=== PATIENT | male | born 1960 | race Caucasian/White ===

== ENCOUNTER → 2016-06-29 | Outpatient (CLI) | payer OTHER ==
[~2016-06-29] MED LIST: CYCL10TA6 PO; GLC/500 PO; LOSA100T2 PO; LOSA1TAB PO; ONDA4TAB7 SL
[2016-06-29 12:30] LABS: URINE APPEARANCE CLEAR (CLEAR); URINE BILIRUBIN NEG (NEG); URINE COLOR YELLOW; URINE EPITHELIAL CELL AUTO 0-5 /lpf (0-5); URINE NITRITE NEG (NEG); URINE PH 5.5 (4.5-7.5); URINE SPECIFIC GRAVITY 1.008 (1.000-1.030); UROBILINOGEN NEG (NEG); ZZUR CULT IF INDIC CLEAN CATCH NO
[2016-06-29 12:41] LABS: ESTIMATED AVERAGE GLUCOSE 143 mg/dl; HA1C FLAG Normal (Normal)
[2016-06-29 12:43] LABS: MANUAL MICROSCOPIC REQUIRED? NO; REVIEW REQ? NO
[2016-06-29 12:46] LABS: ALT/SGPT 36 U/L (12-78); AST/SGOT 19 U/L (15-37); BLOOD UREA NITROGEN 16 mg/dl (7-18); CALCIUM 8.8 mg/dl (8.5-10.1); CARBON DIOXIDE 28 mmol/L (21-32); CHLORIDE 107 mmol/L (98-107); GLUCOSE 99 mg/dl (70-99); POTASSIUM 3.8 mmol/L (3.5-5.1); SODIUM 142 mmol/L (136-145)
[2016-06-29 12:56] LABS: ALB/GLOB RATIO 1.5 (0.9-2); ALKALINE PHOSPHATASE 70 U/L (45-117); CHOLESTEROL 157 mg/dl (0-200); HDL CHOLESTEROL 39 mg/dl; LDL CHOLESTEROL CALCULATED 94 mg/dl; TRIGLYCERIDES 120 mg/dl (0-150); VERY LOW DENSITY LIPOPROT CALC 24 mg/dl
== END | disposition home or self-care (01) ==
LOC: C.LABBFT 09:08
PROVIDERS: ATTEND Internal Medicine
DX: E11.9 Type 2 diabetes mellitus without complications (principal); R52 Pain, unspecified; N52.9 Male erectile dysfunction, unspecified; Z13.6 Encounter for screening for cardiovascular disorders

== ENCOUNTER 2016-10-25 21:40 | Emergency (ER) | payer OTHER ==
[~2016-10-25] VITALS: Ht 177.8 cm; Wt 98.0 kg
[~2016-10-25 21:40] MED LIST changes: -CYCL10TA6 PO; -GLC/500 PO; -LOSA100T2 PO
[2016-10-25 22:02] VITALS: TEMP 36.7; Ht 177.8 cm; Wt 98.0 kg
[2016-10-25] MEDS ORDERED: KETOROLAC TROMETHAMINE 60 MG/2 ML VIAL IM STA (22:31)
[2016-10-25] MEDS ORDERED: DIAZEPAM 5MG TAB PO STA (22:31)
[2016-10-25 22:53] LABS: URINE APPEARANCE CLEAR (CLEAR); URINE BILIRUBIN NEG (NEG); URINE COLOR YELLOW; URINE NITRITE NEG (NEG); URINE SPECIFIC GRAVITY 1.021 (1.000-1.030); UROBILINOGEN NEG (NEG); ZZUR CULT IF INDIC CLEAN CATCH NO
[2016-10-25 22:57] LABS: MANUAL MICROSCOPIC REQUIRED? NO; REVIEW REQ? NO
[2016-10-25] MEDS ORDERED: GLC/500 PO ×2 (23:11→23:14)
[2016-10-25] MEDS ORDERED: LOSA100T2 PO (23:13)
[2016-10-25] MEDS ORDERED: CYCL10TA6 PO (23:26)
--- NOTE | 2016-10-25 23:28 | EMERGENCY ROOM VISIT NOTE ---
History First contact with patient: 22:22 Chief Complaint: BACK PAIN Stated Complaint: SEVERE BACK SPASMS History of Present Illness The patient is a 56 year old male who presents to the Emergency Room with complaints of back spasms which began this evening. The patient states that he slipped and fell onto his buttocks earlier today. He states that he had no significant pain for a few hours, until he began to ice the area. He reports that then, his lower back began to spasm. He states that the spasms did not occur in the area that he injured during the fall, but up higher. He rates his current discomfort a 10/10 and the pain is worse with any movement of the back. He denies any radiation of the pain into the legs. He denies any numbness or weakness. Review of Systems A complete 10 point review of systems was reviewed with the patient with pertinent positives and negatives as per history of present illness. All else were negative. Social History Smoking Status: Never Smoker Alcohol Use: none Drug Use: none Marital Status: Housing Status: lives with family Occupation Status: employed Current/Historical Medications Scheduled Losartan Potassium & Hydrochlo (Hyzaar), 1 TAB PO DAILY Metformin Hcl (Glucophage), 500 MG PO QPM Allergies Coded Allergies: Adhesives (Verified Allergy, Unknown, COLON/SWELLING, 10/25/16) Latex1 -Allergic Contact Dermititis (Unverified Allergy, Unknown, RASH, ) Metoprolol (Unverified Allergy, Unknown, UNKNOWN REACTION, 10/25/16) Lisinopril (Verified Adverse Reaction, Unknown, COUGHING, 10/25/16) Physical Exam Vital Signs Date Time Temp Pulse Resp B/P (MAP) Pulse Ox O2 Delivery O2 Flow Rate FiO2 10/25/16 23:41 76 16 117/69 97 Room Air 10/25/16 22:02 36.7 66 18 130/84 98 Room Air Physical Exam VITALS: Vitals are noted on the nurse's note and reviewed by myself. No abnormalities noted. GENERAL: This is a 56-year-old male, in no acute distress, nondiaphoretic, well- developed well-nourished. SKIN: The skin was without rashes. HEART: Regular rate and rhythm without murmurs gallops or rubs. LUNGS: Clear to auscultation bilaterally without wheezes, rales or rhonchi. ABDOMEN: Soft, nontender. MUSCULOSKELETAL: No muscle atrophy, erythema, or edema noted of the back. There is no tenderness over the lumbar spinous processes. There is tenderness over the left lumbar paraspinous muscles. There is no tenderness over the thoracic spine or paraspinous muscles. There are left sided muscle spasms present. The patient is slow to move around with maximum tenderness with flexion. Negative straight leg raise test. NEURO: Patient was alert and oriented to person place and time. Normal sensation to light and sharp touch. Deep tendon reflexes 2+ in the lower extremities. Dorsalis pedis pulse 2+ bilaterally. Heel and toe walking is normal. Medical Decision & Procedures Laboratory Results Test 10/25/16 22:40 Urine Color YELLOW Urine Appearance CLEAR (CLEAR) Urine pH 7.0 (4.5-7.5) Urine Specific [place] 1.021 (1.000-1.030) Urine Protein NEG (NEG) Urine Glucose (UA) NEG (NEG) Urine Ketones NEG (NEG) Urine Occult Blood NEG (NEG) Urine Nitrite NEG (NEG) Urine Bilirubin NEG (NEG) Urine Urobilinogen NEG (NEG) Urine Leukocyte Esterase NEG (NEG) Medications Administered Medications (Trade) Dose Ordered Sig/Dominga Route Start Time Stop Time Status Last Admin Dose Admin Diazepam (Valium Tab) 10 mg NOW STAT PO 10/25/16 22:31 10/25/16 22:32 DC 10/25/16 22:37 10 MG Ketorolac Tromethamine (Toradol Inj) 60 mg NOW STAT IM 10/25/16 22:31 10/25/16 22:32 DC 10/25/16 22:38 60 MG Cyclobenzaprine HCl (FLEXERIL 10MG Home Pack) 1 homepack UD ONCE PO 10/25/16 23:30 10/25/16 23:31 DC 10/25/16 23:39 1 HOMEPACK ED Course The patient was evaluated as above. Patient was medicated with 10 mg Valium orally and 60 mg Toradol IM. Patient was reevaluated and stated that he felt much better. Discharge instructions were reviewed with the patient. The patient verbalized understanding of my assessment and treatment plan and was discharged home in good condition. Medical Decision Differential diagnosis includes cauda equina syndrome, cord compression, disc herniation, muscle spasm, lumbar strain, epidural abscess, malignancy, transverse myelitis, urinary tract infection, colitis, diverticulitis, kidney stone, among others. The patient is a 56-year-old male who presents today complaining of low back spasms. The patient has symptoms most consistent with muscular spasms. Urinalysis was not suggestive of a kidney stone. He was treated with Valium and Toradol with good relief of symptoms. He will be placed on Flexeril and was instructed to follow up with his PCP for further evaluation. He will return here for worsening symptoms. Medication reconciliation: I attest that I have personally reviewed the patient 's current medication list. Blood pressure screening: Patient was found to have normal blood pressure on screening and does not require follow-up. Impression Primary Impression: Lumbar paraspinal muscle spasm Departure Information Dispostion Home / Self-Care Condition GOOD Referrals Latrell Paul M.D. (PCP) Patient Instructions My [facility] Additional Instructions You have been treated in the Emergency Department for Back Pain. You have been prescribed Flexeril (cyclobenzaprine) 1-2 tabs orally, three times per day. Do NOT exceed 30 mg (6 tabs) per day. Take your first dose at bedtime as it can make you drowsy. Always take all medications as prescribed. For pain control, you can use the following [id number] medicines (if >12 yo): - Regular strength (325mg/tab) Tylenol (acetaminophen) 2 tabs every 4-6 hours as needed. Do not exceed 12 tablets in a 24 hour period. Avoid taking more than 4 grams (4000 mg) of Tylenol per day. This includes any other sources of acetaminophen you may take on a regular basis. - Regular strength (200 mg/tab) Advil (ibuprofen) 1-2 tabs every 4-6 hours as needed. Do not exceed a dose of 3200 mg per day. A heating pad can be used over the area for continued soothing relief. You should schedule a follow-up appointment in 2-3 days with your Primary Care Provider for further evaluation and treatment of your back pain. Return to the Emergency Department if your current symptoms worsen despite treatment course outlined above, or if you develop any of the following symptoms : intractable pain despite aforementioned treatment course, loss of control of your bowel or bladder, numbness or tingling in your groin, or development of a fever.
[2016-10-25] MEDS ORDERED: FLEXERIL HOME PACK 10 MG VIAL PO ONE (23:30)
[2016-10-25 23:41] VITALS: BP 117/69; PULSE 76; O2SAT 97
== END 2016-10-25 23:43 | disposition home or self-care (01) ==
LOC: C.EDB 21:41 → C.EDC 23:43
DX: M62.830 Muscle spasm of back (principal); W01.0XXA Fall on same level from slipping, tripping and stumbling without subsequent striking against object, initial encounter; Z79.899 Other long term (current) drug therapy

== ENCOUNTER → 2016-12-21 | Outpatient (CLI) | payer OTHER ==
[~2016-12-21] MED LIST changes: +GLC/500 PO; +LOSA100T2 PO; -LOSA1TAB PO; -ONDA4TAB7 SL
== END | disposition home or self-care (01) ==
LOC: C.LABBFT 11:05
PROVIDERS: ATTEND Physician Assistant Medical
DX: M25.519 Pain in unspecified shoulder (principal)

== ENCOUNTER → 2017-07-24 | Outpatient (CLI) | payer OTHER | END | disposition home or self-care (01) | LOC: C.LABBFT 08:40 | PROVIDERS: ATTEND Internal Medicine | DX: R39.9 Unspecified symptoms and signs involving the genitourinary system (principal) ==

== ENCOUNTER → 2017-07-31 | Outpatient (CLI) | payer OTHER | END | disposition home or self-care (01) | LOC: C.LABBFT 14:36 | PROVIDERS: ATTEND Internal Medicine | DX: R39.9 Unspecified symptoms and signs involving the genitourinary system (principal) ==

== ENCOUNTER 2023-01-07 01:28 | Observation (INO) ==
[2023-01-07] MEDS ORDERED: NITROGLYCERIN SL 0.4 MG/TAB TAB SL STA (01:46)
[2023-01-07] MEDS ORDERED: fentaNYL citrate PF 100 MCG/2 ML VIAL IV STA (01:46)
[2023-01-07] MEDS ORDERED: ASPIRIN 81 MG CHEW PO STA (01:46)
--- NOTE | 2023-01-07 01:50 | Emergency Department Note ---
Impression & Plan Chest pain radiating to jaw, Hypertension ED Provider Note Name: TED JIMENEZ Age: 62 Sex: M Arrives Via: Walk-In Informant: Patient ED Provider: Michele Gerber MD Chief Complaint: Chest pain Impression: As per impressions above Medical Decision Makin-year-old gentleman with a history of diabetes, hypertension, dyslipidemia arrives for evaluation of substernal chest pain. Radiates to left shoulder and left neck. Resolved with some IV pain medications and nitro. Blood pressure was elevated on arrival is come down nicely. Chest pain is completely resolved. He is given aspirin 324 mg p.o. Chest x-ray is unremarkable without a widened mediastinum. D-dimer is normal I think PE and dissection are unlikely. Initial EKG okay and second is good as well. No evidence of STEMI at this time. Initial troponin within normal range as are other labs. That said patient has moderate heart score and will need hospitalization for further work-up. Hospitalist in to see him and agrees. Prior Medical Record and Triage/Nursing Notes reviewed by Me External chart reviewed by me including previous outpatient records Differentials:Cardiac ischemia, aortic dissection, pulmonary embolism, pneumothorax, pneumonia, pericarditis, myocarditis, esophageal rupture, GERD, cholecystitis, pancreatitis, musculoskeletal, as well as other pathologies. Vital Signs: reviewed and remarkable for hypertension arrival Interventions: Dilaudid IV, sublingual nitroglycerin, aspirin 324 Labs:Reviewed and remarkable for no significant abnormalities Imagin view chest x-ray as per my interpretation reveals no pneumonia, eff usion, pneumothorax, widened mediastinum EKG:As per my interpretation. Indication chest pain. Sinus bradycardia 54 bpm QTc of 386. There is no ectopy nor ischemia. When compared to EKG of June 22, 2020 no significant change other than rate has decreased. Cardiac/Tele Monitoring: Cardiac Monitoring: An Order was placed for continuous cardiac monitoring. The monitor shows a rate of 60 with a normal sinus rhythm. Consults:Dr Vickie SURESH Hospitalist Plan: Disposition:Hospitalization. Condition: Good History of Present Illness:62-year-old gentleman arrives for evaluation of chest pain. Patient states he developed substernal chest pain about 2 hours ago. Initially the pain actually was in the left shoulder but is now substernal. It radiates to the left and right chest as well as the left neck. Is a bit worse with deep inspiration. Better with rest. No medications prior to arrival. Denies any inciting event. States for dinner he had some knots but nothing else unusual. Does not have any significant reflux history. Denies any falls, trauma, injuries. Denies any syncope, difficulty breathing, palpitations, nausea, vomiting, abdominal pain, back pain, urinary/bowel symptoms, leg swelling, calf pain or other concerning signs or symptoms. Denies a history of cardiac disease. States he had a stress test a few years ago. Past History: Diabetes, hypertension, dyslipidemia, hypothyroidism Home Medications:See Below Allergies:See Below Vitals:Blood Pressure: 163/98, Pulse 60, RR 20, T 36.8C, O2 100% on RA Physical Exam: GENERAL: Patient is uncomfortable appearing and in moderate distress. EYES: No scleral icterus, unremarkable pupils. ENT: Mucous membranes moist, no nasal congestion. NECK: No masses appreciated, nomeningismus, trachea is midline. RESPIRATORY: No dyspnea. Clear to auscultation and equal bilaterally. No wheeze, no rhonchi. CARDIOVASCULAR: Regular rate and rhythm.No murmurs, rubs, gallops appreciated. GASTROINTESTINAL: Abdomen soft, non-tender, no peritonitis.Bowel sounds positive.No masses appreciated. BACK: No midline tenderness, no CVA tenderness EXTREMITIES: Normal motion all extremities, no cyanosis, no edema. NEUROLOGIC: Alert and oriented, no acute motor or sensory deficits, no focal weakness, cranial nerves grossly intact. SKIN: No rash, no jaundice, no diaphoresis. PSYCH: Appropriate GCS: 15 ED Course: Times/Reassessments: Patient is vastly improved after meds. Blood pressures come down nicely pain has not returned. He is comfortable with plan for additional work-up as hospitalized patient Michele Gerber MD Past Med/Surg History Medical History (Updated 01/07/23 @ 05:32 by Michele Gerber MD) Family history of coronary artery disease Hyperlipidemia Hypertension Hypothyroidism Type 2 diabetes mellitus Vitamin D deficiency Family History Father Heart disease Denies family history of Prostate cancer Breast cancer Colorectal cancer Social History (Updated 08/29/22 @ 13:05 by Freda Cisneros LPN) Smoking Status: Never smoker Second Hand Exposure: No; Do You Dip or Chew Tobacco: No; Hx Alcohol Use: No Hx Substance Use: No current occupational status: employed current occupation: [employer] Feels Safe at Home: Yes Diet: regular caffeine: Yes Physical Activity Frequency: Daily Seatbelt Use: other Sunscreen Use: Yes (Sometimes) Assistive Devices: Glasses Allergies Allergies Allergy/AdvReac Type Severity Reaction Status Date / Time adhesive Allergy Unknown COLON/SWELL Verified 08/29/22 12:57 ING latex Allergy Unknown RASH Verified 08/29/22 12:57 metoprolol Allergy Unknown Rash Verified 08/29/22 12:57 atorvastatin Allergy Verified 08/29/22 12:57 lisinopril AdvReac Unknown COUGHING Verified 08/29/22 12:57 Home Meds Home Medications Medication Instructions Recorded Confirmed cholecalciferol (vitamin D3) 25 1,000 units PO QAM 06/22/20 01/07/23 mcg (1,000 unit) capsule levothyroxine 50 mcg tablet 50 mcg PO DAILY 08/29/22 01/07/23 magnesium oxide 400 mg PO DAILY 08/29/22 01/07/23 Previous Rx's Medication Instructions Recorded losartan 50 mg tablet 50 mg PO DAILY #90 tabs 01/30/22 empagliflozin 10 mg tablet 10 mg PO DAILY #90 tabs 04/17/22 (Jardiance) metformin 500 mg tablet 500 mg PO BID #180 tabs 11/20/22 Results & Data (ED) Vital Signs Vital Signs - 24 hr 01/07/23 01:31 01/07/23 02:10 01/07/23 02:10 Temperature 36.8 C Temperature Source Temporal Artery Scan Pulse Rate 60 Pulse Rate [Apical] 52 L Pulse Rate from SpO2 Sensor Pulse Rhythm Regular Pulse Rhythm [Apical] Regular Pulse Strength Normal Pulse Strength [Apical] Normal Respiratory Rate 20 21 Respiratory Effort / Characteristics Non-Labored Spontaneous Non-Labored Respiratory Depth Normal Normal Respiratory Pattern Regular Blood Pressure 163/98 H Blood Pressure Mean 119 Blood Pressure Position Sitting Pulse Oximetry 100 95 91 Oxygen Delivery Method Room Air Room Air Room Air Sepsis Recent Fever Within 48 Hours No Sepsis New/Unexplained Change in Mental Status N/A Sepsis Action Taken by Nursing No Action Required 01/07/23 02:08 01/07/23 02:30 01/07/23 02:08 Temperature Temperature Source Pulse Rate 54 L 52 L 52 L Pulse Rate [Apical] Pulse Rate from SpO2 Sensor 54 L 52 L Pulse Rhythm Pulse Rhythm [Apical] Pulse Strength Pulse Strength [Apical] Respiratory Rate 16 17 Respiratory Effort / Characteristics Respiratory Depth Respiratory Pattern Blood Pressure 120/78 Blood Pressure Mean 92 Blood Pressure Position Pulse Oximetry 95 96 Oxygen Delivery Method Room Air Sepsis Recent Fever Within 48 Hours Sepsis New/Unexplained Change in Mental Status Sepsis Action Taken by Nursing 01/07/23 03:00 01/07/23 03:30 01/07/23 04:00 Temperature Temperature Source Pulse Rate 51 L 55 L Pulse Rate [Apical] Pulse Rate from SpO2 Sensor 51 L 56 L Pulse Rhythm Pulse Rhythm [Apical] Pulse Strength Pulse Strength [Apical] Respiratory Rate 16 17 Respiratory Effort / Characteristics Non-Labored Spontaneous Respiratory Depth Normal Respiratory Pattern Blood Pressure 121/76 115/72 Blood Pressure Mean 91 86 Blood Pressure Position Pulse Oximetry 100 97 Oxygen Delivery Method Sepsis Recent Fever Within 48 Hours Sepsis New/Unexplained Change in Mental Status Sepsis Action Taken by Nursing Laboratory Data 01/07/23 02:00 01/07/23 02:00 Lab Results 01/07/23 01/07/23 01/07/23 Range/Units 02:00 02:00 02:00 WBC 6.54 (4.8-10.8) K/ul RBC 5.42 (4.70-6.10) M/uL Hgb 15.8 (14.0-18.0) g/dl Hct 46.5 (42.0-52.0) % MCV 85.8 (80.0-100.0) fL MCH 29.2 (25.0-34.0) pg MCHC 34.0 (32.0-36.0) g/dL RDW Std Deviation 40.2 (36.4-46.3) fL RDW Coeff of [place] 13.1 (11.5-14.5) % Plt Count 127 L (130-400) K/uL MPV 10.6 (9.4-12.4) fL Immature Gran % (Auto) 0.3 % Neut % (Auto) 56.6 % Lymph % (Auto) 31.3 % [place] % (Auto) 8.9 % Eos % (Auto) 2.1 % Baso % (Auto) 0.8 % Neut # (Auto) 3.70 (1.40-6.50) K/uL Lymph # (Auto) 2.05 (1.20-3.40) K/uL [place] # (Auto) 0.58 (0.11-0.59) K/uL Eos # (Auto) 0.14 (0.00-0.50) K/uL Baso # (Auto) 0.05 (0.00-0.20) K/uL Immature Gran # (Auto) 0.02 (0.01-0.20) K/uL D-Dimer < 190 (0-500) ug/L FEU Sodium (136-145) mmol/L Potassium (3.5-5.1) mmol/L Chloride (98-107) mmol/L Carbon Dioxide (21-32) mmol/L Anion Gap (3-11) BUN (6-23) mg/dl Creatinine (0.6-1.4) mg/dl Est Cr Clr Drug Dosing ml/min Est GFR ( Amer) ml/min Est GFR (Non-Af Amer) ml/min BUN/Creatinine Ratio (10-20) Glucose (70-99(Fasting)) mg/dl Calcium (8.6-10.3) mg/dl Magnesium (1.7-2.4) mg/dl Total Bilirubin (0.2-1.0) mg/dl Direct Bilirubin AST (13-39) U/L ALT (7-52) U/L Alkaline Phosphatase (34-104) U/L Troponin I High Sens Cancelled Total Protein (6.0-8.3) gm/dl Albumin (3.4-5.0) gm/dl Lipase (11-82) U/L 01/07/23 Range/Units 02:00 WBC (4.8-10.8) K/ul RBC (4.70-6.10) M/uL Hgb (14.0-18.0) g/dl Hct (42.0-52.0) % MCV (80.0-100.0) fL MCH (25.0-34.0) pg MCHC (32.0-36.0) g/dL RDW Std Deviation (36.4-46.3) fL RDW Coeff of [place] (11.5-14.5) % Plt Count (130-400) K/uL MPV (9.4-12.4) fL Immature Gran % (Auto) % Neut % (Auto) % Lymph % (Auto) % [place] % (Auto) % Eos % (Auto) % Baso % (Auto) % Neut # (Auto) (1.40-6.50) K/uL Lymph # (Auto) (1.20-3.40) K/uL [place] # (Auto) (0.11-0.59) K/uL Eos # (Auto) (0.00-0.50) K/uL Baso # (Auto) (0.00-0.20) K/uL Immature Gran # (Auto) (0.01-0.20) K/uL D-Dimer (0-500) ug/L FEU Sodium 138 (136-145) mmol/L Potassium 4.2 (3.5-5.1) mmol/L Chloride 100 (98-107) mmol/L Carbon Dioxide 32 (21-32) mmol/L Anion Gap 6 (3-11) BUN 19 (6-23) mg/dl Creatinine 1.14 (0.6-1.4) mg/dl Est Cr Clr Drug Dosing 77.1 ml/min Est GFR ( Amer) 78.9 ml/min Est GFR (Non-Af Amer) 68.1 ml/min BUN/Creatinine Ratio 16.7 (10-20) Glucose 198 H (70-99(Fasting)) mg/dl Calcium 9.4 (8.6-10.3) mg/dl Magnesium 2.1 (1.7-2.4) mg/dl Total Bilirubin 0.5 (0.2-1.0) mg/dl Direct Bilirubin TNP AST 22 (13-39) U/L ALT 26 (7-52) U/L Alkaline Phosphatase 84 (34-104) U/L Troponin I High Sens 3.5 Total Protein 6.7 (6.0-8.3) gm/dl Albumin 4.5 (3.4-5.0) gm/dl Lipase 12 (11-82) U/L Administered Medications Discontinued Medications Aspirin (Aspirin 81 Mg Chew) 324 mg PO NOW STA Stop: 01/07/23 01:47 Last Admin: 01/07/23 01:58 Dose: 324 mg Documented By: SAB Fentanyl Citrate (Fentanyl Citrate Pf 100 Mcg/2 Ml Vial) 75 mcg IV NOW STA Stop: 01/07/23 01:47 Last Admin: 01/07/23 02:07 Dose: 75 mcg Documented By: SHU Nitroglycerin (Nitroglycerin Sl 0.4 Mg/Tab Tab) 0.4 mg SL NOW STA Stop: 01/07/23 01:47 Last Admin: 01/07/23 01:54 Dose: 0.4 mg Documented By: SHU Discharge Plan Visit Data Chief Complaint: Chest Pain Stated Complaint: CHEST PAIN ED Provider: Michele Gerber Discharge Problem: Chest pain radiating to jaw, Hypertension Forms Stand Alone Forms: [facility] [employer] Prescriptions Prescriptions: No Action losartan 50 mg tablet 50 mg PO DAILY Qty: 90 3RF Jardiance 10 mg tablet 10 mg PO DAILY Qty: 90 2RF metformin 500 mg tablet 500 mg PO BID Qty: 180 3RF levothyroxine 50 mcg tablet 50 mcg PO DAILY Rx Instructions: 1/2 pill Sunday's, Sunday's, and Sunday's only magnesium oxide 400 mg magnesium tablet 400 mg PO DAILY cholecalciferol (vitamin D3) 25 mcg (1,000 unit) capsule 1,000 units PO QAM Referrals Referrals: Breanne Webb MD [Primary Care Provider] - Hypertension Qualifiers: Hypertension type: primary hypertension Qualified Code(s): I10 - Essential (primary) hypertension
[2023-01-07 02:34] LABS: Basophils # (auto) 0.05 K/uL (0.00-0.20); Basophils % (auto) 0.8 %; Eosinophils # (auto) 0.14 K/uL (0.00-0.50); Eosinophils % (auto) 2.1 %; Hematocrit (blood only) 46.5 % (42.0-52.0); Hemoglobin 15.8 g/dl (14.0-18.0); Immature Granulocytes # (auto) 0.02 K/uL (0.01-0.20); Immature Granulocytes % (auto) 0.3 %; Lymphocytes # (auto) 2.05 K/uL (1.20-3.40); Lymphocytes % (auto) 31.3 %; Mean Corpuscular Hemoglobin 29.2 pg (25.0-34.0); Mean Corpuscular Volume 85.8 fL (80.0-100.0); Mean Platelet Volume 10.6 fL (9.4-12.4); Monocytes # (auto) 0.58 K/uL (0.11-0.59); Monocytes % (auto) 8.9 %; Neutrophils % (auto) 56.6 %; Platelet Count 127 K/uL (130-400); RDW Coefficient of Variation 13.1 % (11.5-14.5); RDW Standard Deviation 40.2 fL (36.4-46.3); Red Blood Count 5.42 M/uL (4.70-6.10); White Blood Count 6.54 K/ul (4.8-10.8)
[2023-01-07 03:14] LABS: D Dimer < 190 ug/L FEU (0-500)
[2023-01-07 03:24] LABS: Alanine Aminotransferase 26 U/L (7-52); Albumin Level 4.5 gm/dl (3.4-5.0); Alkaline Phosphatase 84 U/L (34-104); Anion Gap 6 (3-11); Aspartate Aminotransferase 22 U/L (13-39); BUN Creatinine Ratio 16.7 (10-20); Bilirubin,Total 0.5 mg/dl (0.2-1.0); Blood Urea Nitrogen 19 mg/dl (6-23); Calcium 9.4 mg/dl (8.6-10.3); Carbon Dioxide 32 mmol/L (21-32); Chloride 100 mmol/L (98-107); Creatinine Clr Calc Pharmacy 77.1 ml/min; Est GFR (African American) 78.9 ml/min; Est GFR (Non-African American) 68.1 ml/min; Glucose 198 mg/dl (70-99(Fasting)); Lipase 12 U/L (11-82); Magnesium 2.1 mg/dl (1.7-2.4); Potassium 4.2 mmol/L (3.5-5.1); Sodium 138 mmol/L (136-145); Total Protein 6.7 gm/dl (6.0-8.3); Troponin I High Sensitivity 3.5 pg/ml (0-20)
--- NOTE | 2023-01-07 04:32 | History & Physical Report ---
Date of Service January 07, 2023 Assessment & Plan (1) Chest pain radiating to jaw: (2) Vitamin D deficiency: (3) Hypertension: (4) Hyperlipidemia: (5) Type 2 diabetes mellitus: (6) Hypothyroidism: (7) Family history of coronary artery disease: Plan Substernal chest pain radiating to her left chest and left side of neck and jaw/hypertension- The patient will be admitted to telemetry for serial cardiac enzymes, serial EKG's, cardiac rhythm monitoring and a 2-D echocardiogram with Dopplers. Risk factors include the following: Hypertension, hyperlipidemia, diabetes mellitus, family history Patient reports he was advised to get a stress test many years ago by his PCP, never got around to doing it Initial heart enzymes are normal Patient did have a negative stress echocardiogram on 05/10/2021 In the emergency department he received fentanyl 75 mcg IV, nitroglycerin sublin gual, and aspirin 324 mg Continue aspirin 81 mg daily Hold losartan now for low blood pressure Diabetes mellitus- Continue empagliflozin 10 mg daily Hold metformin 500 mg twice daily Placed on Accu-Cheks with NovoLog SSI Hypothyroidism- Patient reports taking half a pill on Sunday, Sunday and Sunday only History of Present Illness Chief Complaint: The patient presents to the emergency department with complaint of pain about 2 hours prior to arrival, initially began in the left shoulder, then radiated to substernal area, and then into his left chest wall and left side of neck. Primary Care Provider: Breanne Webb MD The patient is a 62-year-old male with a past medical history including vitamin D deficiency, hypertension, hyperlipidemia, diabetes mellitus type 2 and hypothyroidism. He presented to the emergency department with symptoms as noted above. His family history includes father of an IN in his early 40s, and a mother who had an IN in her early 40s and survived. He describes the pain as being very severe, enough so to wake his up and have her bring him to the emergency department for assessment. After receiving IV fentanyl, nitroglycerin sublingual and aspirin in the emergency department he reports the pain is significantly improved. He denies any change in usual activities. He reports that he walks [employer] on TV yesterday, then [place] [employer] [place], and then went to bed. Allergies Allergy/AdvReac Type Severity Reaction Status Date / Time adhesive Allergy Unknown COLNO/SWELL Verified 08/29/22 12:57 ING latex Allergy Unknown RASH Verified 08/29/22 12:57 metoprolol Allergy Unknown Rash Verified 08/29/22 12:57 atorvastatin Allergy Verified 08/29/22 12:57 lisinopril AdvReac Unknown COUGHING Verified 08/29/22 12:57 Home Medications Medication Instructions Recorded Confirmed Type cholecalciferol (vitamin D3) 25 1,000 units PO QAM 06/22/20 01/07/23 History mcg (1,000 unit) capsule losartan 50 mg tablet 50 mg PO DAILY #90 tabs 01/30/22 01/07/23 Rx empagliflozin 10 mg tablet 10 mg PO DAILY #90 tabs 04/17/22 01/07/23 Rx (Jardiance) levothyroxine 50 mcg tablet 50 mcg PO DAILY 08/29/22 01/07/23 History magnesium oxide 400 mg PO DAILY 08/29/22 01/07/23 History metformin 500 mg tablet 500 mg PO BID #180 tabs 11/20/22 01/07/23 Rx Past Med/Surg History Medical History (Updated 01/07/23 @ 04:55 by Pierre Johnston MD) Family history of coronary artery disease Hyperlipidemia Hypertension Hypothyroidism Type 2 diabetes mellitus Vitamin D deficiency Family History Father Heart disease Denies family history of Prostate cancer Breast cancer Colorectal cancer Social History (Updated 08/29/22 @ 13:05 by Freda Cisneros LPN) Smoking Status: Never smoker Second Hand Exposure: No; Do You Dip or Chew Tobacco: No; Hx Alcohol Use: No Hx Substance Use: No current occupational status: employed current occupation: Railroad/Farming/Machine Shop Feels Safe at Home: Yes Diet: regular caffeine: Yes Physical Activity Frequency: Daily Seatbelt Use: other Sunscreen Use: Yes (Sometimes) Assistive Devices: Glasses Review of Systems Review of Systems: The patient denies chest pain, palpitations, cough, lower extremity swelling, sore throat, fevers, chills, sweats, fatigue, nausea, vomiting, diarrhea , constipation, abdominal pain, pelvic pain, blood in urine or stool, dysuria, urinary frequency or urgency, lightheadedness, dizziness, headache, memory loss, loss of consciousness, rash, abnormal bruising or bleeding, imbalance, focal or generalized weakness, numbness or tingling in arms or legs, generalized arthralgias or myalgias, back pain, or night sweats. The review of systems is otherwise negative other than for that already noted above, and at least 10 systems have been reviewed. Physical Exam Physical Exam: The patient is awake, alert and oriented 3, well developed and well nourished, normocephalic and atraumatic, lying in bed and in no acute distress. HEENT--PERRL, EOMI, mucous membranes and oropharynx normal. Neck--supple. No JVD. No bruits. Thyroid normal, trachea midline, no adenopathy. Heart--normal S1 and S2. No murmurs, rubs or gallops. Lungs--clear bilaterally, no respiratory distress, no accessory muscle use. Abdomen--normal bowel sounds and soft. Nontender. Nondistended, no hernias or masses, no organomegaly. Extremities--no cyanosis or clubbing. No edema. Dermatologic--normal skin turgor, normal color, no abnormal lymph nodes, no rash. Neurologic--cranial nerves II through XII grossly intact. Rheumatologic--normal range of motion. Psychiatric--normal affect. Results & Data Results & Data Vital Signs (Past 12 Hours) Vital Signs Temp Pulse Pulse Resp BP Pulse Ox O2 Del Method 01/07/23 03:30 55 L 17 115/72 97 01/07/23 03:00 51 L 16 121/76 100 01/07/23 02:08 52 L 01/07/23 02:30 52 L 17 120/78 96 Room Air 01/07/23 02:08 54 L 16 95 01/07/23 02:10 52 L 21 91 Room Air 01/07/23 02:10 95 Room Air 01/07/23 01:31 36.8 C 60 20 163/98 H 100 Room Air Laboratory Results Laboratory Results WBC 6.54 K/ul (4.8-10.8) 01/07/23 02:00 RBC 5.42 M/uL (4.70-6.10) 01/07/23 02:00 Hgb 15.8 g/dl (14.0-18.0) 01/07/23 02:00 Hct 46.5 % (42.0-52.0) 01/07/23 02:00 MCV 85.8 fL (80.0-100.0) 01/07/23 02:00 MCH 29.2 pg (25.0-34.0) 01/07/23 02:00 MCHC 34.0 g/dL (32.0-36.0) 01/07/23 02:00 RDW Std Deviation 40.2 fL (36.4-46.3) 01/07/23 02:00 RDW Coeff of [place] 13.1 % (11.5-14.5) 01/07/23 02:00 Plt Count 127 K/uL (130-400) L 01/07/23 02:00 MPV 10.6 fL (9.4-12.4) 01/07/23 02:00 Immature Gran % (Auto) 0.3 % 01/07/23 02:00 Neut % (Auto) 56.6 % 01/07/23 02:00 Lymph % (Auto) 31.3 % 01/07/23 02:00 [place] % (Auto) 8.9 % 01/07/23 02:00 Eos % (Auto) 2.1 % 01/07/23 02:00 Baso % (Auto) 0.8 % 01/07/23 02:00 Neut # (Auto) 3.70 K/uL (1.40-6.50) 01/07/23 02:00 Lymph # (Auto) 2.05 K/uL (1.20-3.40) 01/07/23 02:00 [place] # (Auto) 0.58 K/uL (0.11-0.59) 01/07/23 02:00 Eos # (Auto) 0.14 K/uL (0.00-0.50) 01/07/23 02:00 Baso # (Auto) 0.05 K/uL (0.00-0.20) 01/07/23 02:00 Immature Gran # (Auto) 0.02 K/uL (0.01-0.20) 01/07/23 02:00 D-Dimer < 190 ug/L FEU (0-500) 01/07/23 02:00 Sodium 138 mmol/L (136-145) 01/07/23 02:00 Potassium 4.2 mmol/L (3.5-5.1) 01/07/23 02:00 Chloride 100 mmol/L (98-107) 01/07/23 02:00 Carbon Dioxide 32 mmol/L (21-32) 01/07/23 02:00 Anion Gap 6 (3-11) 01/07/23 02:00 BUN 19 mg/dl (6-23) 01/07/23 02:00 Creatinine 1.14 mg/dl (0.6-1.4) 01/07/23 02:00 Est Cr Clr Drug Dosing 77.1 ml/min 01/07/23 02:00 Est GFR ( Amer) 78.9 ml/min 01/07/23 02:00 Est GFR (Non-Af Amer) 68.1 ml/min 01/07/23 02:00 BUN/Creatinine Ratio 16.7 (10-20) 01/07/23 02:00 Glucose 198 mg/dl (70-99(Fasting)) H 01/07/23 02:00 Calcium 9.4 mg/dl (8.6-10.3) 01/07/23 02:00 Magnesium 2.1 mg/dl (1.7-2.4) 01/07/23 02:00 Total Bilirubin 0.5 mg/dl (0.2-1.0) 01/07/23 02:00 Direct Bilirubin TNP 01/07/23 02:00 AST 22 U/L (13-39) 01/07/23 02:00 ALT 26 U/L (7-52) 01/07/23 02:00 Alkaline Phosphatase 84 U/L (34-104) 01/07/23 02:00 Troponin I High Sens 3.5 pg/ml (0-20) 01/07/23 02:00 Troponin I High Sens Cancelled 01/07/23 02:00 Total Protein 6.7 gm/dl (6.0-8.3) 01/07/23 02:00 Albumin 4.5 gm/dl (3.4-5.0) 01/07/23 02:00 Lipase 12 U/L (11-82) 01/07/23 02:00 Code Status & VTE Plan Code Status Full code VTE Prophylaxis Plan VTE Prophylaxis will be ordered: Yes PG Care Time/CCT Total # of Minutes Spent Total Time Spent with Patient: Total time spent is greater than 50% in coordination of care (as documented) at patient's floor/unit and/or counseling patient: Coding Level of Care Code 30758 INT INP/OBS CARE 375MIN Diagnoses Chest pain radiating to jaw R07.9 Vitamin D deficiency E55.9 Hypertension I10 Hyperlipidemia E78.5 Type 2 diabetes mellitus E11.9 Hypothyroidism E03.9 Family history of coronary artery disease Z82.49
[2023-01-07] MEDS ORDERED: NITROGLYCERIN SL 0.4 MG/TAB TAB SL PRN (08:16)
[2023-01-07] MEDS ORDERED: ACETAMINOPHEN 325 MG TAB PO PRN (08:16)
[2023-01-07] MEDS ORDERED: ONDANSETRON INJ 2 MG/ML 2 ML VIAL IV PRN (08:16)
[2023-01-07] MEDS ORDERED: DEXTROSE 50% 50 ML SYRINGE IV PRN (08:45)
[2023-01-07] MEDS ORDERED: GLUCOSE 10 TAB/TUBE PO PRN (08:45)
[2023-01-07] MEDS ORDERED: GLUCAGON FOR INJ 1 MG VIAL IM PRN (08:45)
[2023-01-07] MEDS ORDERED: GLUCOSE 40% GEL 15 GM TUBE PO PRN (08:45)
[2023-01-07] MEDS ORDERED: CARBOHYDRATES FOR HYPOGLYCEMIA PO PRN (08:45)
[2023-01-07] MEDS ORDERED: EMPAGLIFLOZIN 10 MG TAB PO SCH (09:00)
[2023-01-07 09:27] LABS: Troponin I High Sensitivity 3.8 pg/ml (0-20)
[2023-01-07] MEDS: INSULIN ASPART PER UNIT CHARGE SC SCH ×4 (09:53→20:11)
[2023-01-07] MEDS: CHOLECALCIFEROL 1,000 UNITS 25 MCG TAB PO SCH (11:12)
[2023-01-07] MEDS: ASPIRIN 81 MG ECTAB PO SCH (11:12)
--- NOTE | 2023-01-07 12:06 | XCELERA ---
[id number] \\[email or web address]\[id number]
[2023-01-07] MEDS ORDERED: MoRPHine SULFATE 2 MG/ML CARP IV STA (12:14)
--- NOTE | 2023-01-07 13:11 | Cardiology Consultation ---
Date of Consultation January 07, 2023 Assessment & Plan (1) Atypical chest pain: (2) Hypertension: (3) Hyperlipidemia: Plan ASSESSMENT/PLAN: 1. Atypical chest pain: Tender to palpation. Prolonged episode (3-4 hr) initially with negative high-sensitivity troponin x3. Now pleuritic in nature but not consistent with pericarditis as symptoms improve while laying supine and his chest is tender to palpation and upon movement of his upper body, suggesting musculoskeletal etiology. Further evaluation as per primary hospitalist service. 2. Hypertension: Blood pressure has mostly been well controlled. Can continue outpatient regimen. 3. Dyslipidemia: Based on his most recent lipid profile and other data, 10-year cardiovascular risk is elevated. He apparently has an allergy or intolerance to atorvastatin in the past. If tolerated, would recommend rosuvastatin. 4. Disposition: No further cardiology testing planned as an inpatient for his atypical and reproducible chest pain. Recommend risk factor modification given his multiple risk factors for CAD. We discussed the fact that although current presentation is not consistent with ischemic heart disease, cannot rule out ischemic heart disease. Had negative stress echo on 05/10/2021 through the [facility] system. Patient care communicated with Dr. Camarillo of the primary hospitalist service. Thank you for allowing me to participate in the care of your patient. Please call for any other questions or concerns. Sincerely, Thomas Serrato M.D. History of Present Illness Reason for Consultation: Chest pain Requesting Physician: Dr. Johnston Attending Physician: Jet Camarillo, DO History of Present Illness Mr. Munroe is a very pleasant 62-year-old gentleman with a history significant for type 2 diabetes, hypertension, and dyslipidemia. He also has a family history of premature CAD. He was admitted on 01/07/2023 with chest pain. Chest pain occurred on 01/06/2023 and began in his left upper chest near his shoulder and radiated to the center of his chest, and into his left neck area. It persisted for 3 to 4 hours and was associated by shortness of breath. He denies diaphoresis. Since then, it has been pleuritic. It also hurts if he moves his upper body in certain positions. Chest discomfort improves if he lays supine. He also reports belching with the chest pain initially. When he is presented to the emergency department, ECGs were without dynamic ST/T wave abnormalities. His high-sensitivity troponin remained normal x3. He denies syncope, near syncope, palpitations, edema, or bleeding such as melena, hematochezia, or hematuria. He denies nausea or vomiting. Review of systems: As above. Review of systems otherwise negative/unremarkable. Family history: Father at 42 with [place]. He has 3 cousins with prolonged QT syndrome that . His mother has a pacemaker. Social history: He denies smoking, alcohol, or drug abuse. He lives at home with his . He has 2 children. 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 His was present at the bedside. Allergies Allergy/AdvReac Type Severity Reaction Status Date / Time adhesive Allergy Unknown COLON/SWELL Verified 08/29/22 12:57 ING latex Allergy Unknown RASH Verified 08/29/22 12:57 metoprolol Allergy Unknown Rash Verified 08/29/22 12:57 atorvastatin Allergy Verified 08/29/22 12:57 lisinopril AdvReac Unknown COUGHING Verified 08/29/22 12:57 Home Medications Medication Instructions Recorded Confirmed Type cholecalciferol (vitamin D3) 25 1,000 units PO QAM 06/22/20 01/07/23 History mcg (1,000 unit) capsule losartan 50 mg tablet 50 mg PO DAILY #90 tabs 01/30/22 01/07/23 Rx empagliflozin 10 mg tablet 10 mg PO DAILY #90 tabs 04/17/22 01/07/23 Rx (Jardiance) levothyroxine 50 mcg tablet 50 mcg PO DAILY 08/29/22 01/07/23 History magnesium oxide 400 mg PO DAILY 08/29/22 01/07/23 History metformin 500 mg tablet 500 mg PO BID #180 tabs 11/20/22 01/07/23 Rx Patient History Medical History Family history of coronary artery disease Hyperlipidemia Hypertension Hypothyroidism Type 2 diabetes mellitus Vitamin D deficiency Family History Father Heart disease Denies family history of Prostate cancer Breast cancer Colorectal cancer Social History (Updated 08/29/22 @ 13:05 by Freda Cisneros LPN) Smoking Status: Never smoker Second Hand Exposure: No; Do You Dip or Chew Tobacco: No; Hx Alcohol Use: No Hx Substance Use: No Preferred Language: Israeli Communication Ability: Effective Pediatric Rn Required: Yes and No Beliefs That Will Affect Care: None Current Living Situation: Spouse current occupational status: employed current occupation: Railroad/Farming/Machine Shop Other Information That Helps Us Care for You: No Feels Safe at Home: Yes Safety Concerns: Feels Safe At This Time Diet: regular caffeine: Yes Physical Activity Frequency: Daily Seatbelt Use: other Sunscreen Use: Yes (Sometimes) Assistive Devices: Glasses Physical Exam Physical Exam: Gen.: No acute distress. Alert and oriented. HEENT: Anicteric sclera. Neck: No JVD. No bruits. Normal carotid upstrokes bilaterally. Cardiac: PMI was nondisplaced. No ventricular heave. Regular. Normal S1-S2. No murmurs, rubs, or gallops. Pulmonary: Clear to auscultation bilaterally without wheezes, rales, or rhonchi. Abdomen: Soft, nontender, nondistended, with normoactive bowel sounds. No bruits noted. Extremities: 2+ radial pulses bilaterally. 2+ posterior tibialis pulses bilaterally. No edema or cyanosis. Psychiatric: Affect appears appropriate. Chest: Tender to palpation, reproducing his symptoms as described in HPI. Results & Data Vital Signs (Past 12 Hours) Vital Signs Temp Pulse Pulse Resp BP BP Pulse Ox 01/07/23 11:57 37.1 C 62 16 140/86 96 01/07/23 10:55 01/07/23 10:54 36.5 C 64 18 131/77 94 01/07/23 08:27 61 01/07/23 06:30 57 L 20 118/70 96 01/07/23 06:00 59 L 01/07/23 06:00 57 L 20 113/69 96 01/07/23 05:30 61 17 123/73 93 01/07/23 05:00 121/73 01/07/23 04:30 61 20 120/68 94 01/07/23 04:30 120/68 01/07/23 04:00 60 17 124/78 98 01/07/23 03:30 55 L 17 115/72 97 01/07/23 03:00 51 L 16 121/76 100 01/07/23 02:08 52 L 01/07/23 02:30 52 L 17 120/78 96 01/07/23 02:08 54 L 16 95 01/07/23 02:10 52 L 21 91 01/07/23 02:10 95 01/07/23 01:31 36.8 C 60 20 163/98 H 100 Pulse Ox O2 Del Method O2 Del Method 01/07/23 11:57 Room Air 01/07/23 10:55 94 Room Air 01/07/23 10:54 Room Air 01/07/23 08:27 01/07/23 06:30 01/07/23 06:00 01/07/23 06:00 01/07/23 05:30 01/07/23 05:00 01/07/23 04:30 01/07/23 04:30 01/07/23 04:00 01/07/23 03:30 01/07/23 03:00 01/07/23 02:08 01/07/23 02:30 Room Air 01/07/23 02:08 01/07/23 02:10 Room Air 01/07/23 02:10 Room Air 01/07/23 01:31 Room Air Laboratory Results Laboratory Results - last 24 hr 01/07/23 01/07/23 01/07/23 02:00 02:00 02:00 WBC 6.54 RBC 5.42 Hgb 15.8 Hct 46.5 MCV 85.8 MCH 29.2 MCHC 34.0 RDW Std Deviation 40.2 RDW Coeff of [place] 13.1 Plt Count 127 L MPV 10.6 Immature Gran % (Auto) 0.3 Neut % (Auto) 56.6 Lymph % (Auto) 31.3 [place] % (Auto) 8.9 Eos % (Auto) 2.1 Baso % (Auto) 0.8 Neut # (Auto) 3.70 Lymph # (Auto) 2.05 [place] # (Auto) 0.58 Eos # (Auto) 0.14 Baso # (Auto) 0.05 Immature Gran # (Auto) 0.02 D-Dimer < 190 Sodium Potassium Chloride Carbon Dioxide Anion Gap BUN Creatinine Est Cr Clr Drug Dosing Est GFR ( Amer) Est GFR (Non-Af Amer) BUN/Creatinine Ratio Glucose POC Glucose Estimat Average Glucose Hemoglobin A1c Calcium Magnesium Total Bilirubin Direct Bilirubin AST ALT Alkaline Phosphatase Troponin I High Sens Cancelled Total Protein Albumin Triglycerides Cholesterol LDL Cholesterol, Calc VLDL Cholesterol, Calc HDL Cholesterol Cholesterol/HDL Ratio Lipase Hepatitis C Ab (EIA) 01/07/23 01/07/23 01/07/23 02:00 08:29 08:29 WBC RBC Hgb Hct MCV MCH MCHC RDW Std Deviation RDW Coeff of [place] Plt Count MPV Immature Gran % (Auto) Neut % (Auto) Lymph % (Auto) [place] % (Auto) Eos % (Auto) Baso % (Auto) Neut # (Auto) Lymph # (Auto) [place] # (Auto) Eos # (Auto) Baso # (Auto) Immature Gran # (Auto) D-Dimer Sodium 138 Potassium 4.2 Chloride 100 Carbon Dioxide 32 Anion Gap 6 BUN 19 Creatinine 1.14 Est Cr Clr Drug Dosing 77.1 Est GFR ( Amer) 78.9 Est GFR (Non-Af Amer) 68.1 BUN/Creatinine Ratio 16.7 Glucose 198 H POC Glucose Estimat Average Glucose Pending Hemoglobin A1c Pending Calcium 9.4 Magnesium 2.1 Total Bilirubin 0.5 Direct Bilirubin TNP AST 22 ALT 26 Alkaline Phosphatase 84 Troponin I High Sens 3.5 3.8 Total Protein 6.7 Albumin 4.5 Triglycerides 94 Cholesterol 155 LDL Cholesterol, Calc 97 VLDL Cholesterol, Calc 19 HDL Cholesterol 39 Cholesterol/HDL Ratio 4.0 Lipase 12 Hepatitis C Ab (EIA) 01/07/23 01/07/23 01/07/23 09:36 10:47 12:15 WBC RBC Hgb Hct MCV MCH MCHC RDW Std Deviation RDW Coeff of [place] Plt Count MPV Immature Gran % (Auto) Neut % (Auto) Lymph % (Auto) [place] % (Auto) Eos % (Auto) Baso % (Auto) Neut # (Auto) Lymph # (Auto) [place] # (Auto) Eos # (Auto) Baso # (Auto) Immature Gran # (Auto) D-Dimer Sodium Potassium Chloride Carbon Dioxide Anion Gap BUN Creatinine Est Cr Clr Drug Dosing Est GFR ( Amer) Est GFR (Non-Af Amer) BUN/Creatinine Ratio Glucose POC Glucose 139 H 180 H Estimat Average Glucose Hemoglobin A1c Calcium Magnesium Total Bilirubin Direct Bilirubin AST ALT Alkaline Phosphatase Troponin I High Sens 3.8 Total Protein Albumin Triglycerides Cholesterol LDL Cholesterol, Calc VLDL Cholesterol, Calc HDL Cholesterol Cholesterol/HDL Ratio Lipase Hepatitis C Ab (EIA) 01/07/23 01/07/23 12:16 12:33 WBC RBC Hgb Hct MCV MCH MCHC RDW Std Deviation RDW Coeff of [place] Plt Count MPV Immature Gran % (Auto) Neut % (Auto) Lymph % (Auto) [place] % (Auto) Eos % (Auto) Baso % (Auto) Neut # (Auto) Lymph # (Auto) [place] # (Auto) Eos # (Auto) Baso # (Auto) Immature Gran # (Auto) D-Dimer Sodium Potassium Chloride Carbon Dioxide Anion Gap BUN Creatinine Est Cr Clr Drug Dosing Est GFR ( Amer) Est GFR (Non-Af Amer) BUN/Creatinine Ratio Glucose POC Glucose 160 H Estimat Average Glucose Hemoglobin A1c Calcium Magnesium Total Bilirubin Direct Bilirubin AST ALT Alkaline Phosphatase Troponin I High Sens Total Protein Albumin Triglycerides Cholesterol LDL Cholesterol, Calc VLDL Cholesterol, Calc HDL Cholesterol Cholesterol/HDL Ratio Lipase Hepatitis C Ab (EIA) Pending Diagnostic Findings ECGs personally reviewed: ECG 01/07/2023 at 1:39 AM: Sinus rhythm 64 bpm. ECG 01/07/2023 at 2:08 AM: Sinus bradycardia 54 bpm. Telemetry personally reviewed: Sinus rhythm. No arrhythmia. Labs reviewed and notable for normal high-sensitivity troponin x3, negative D- dimer, stable renal function, normal potassium, normal magnesium, normal hemoglobin. History and physical report reviewed. Echo 01/07/2023: Normal LV size, wall motion, systolic function. EF 65 to 70%. Moderate LVH. Mildly dilated RV with normal systolic function. No significant valvular abnormalities. Normal RVSP. Medications Administered Current Inpatient Medications Acetaminophen (Acetaminophen 325 Mg Tab) 650 mg PO Q4H PRN PRN Reason: Pain or Fever Stop: 02/06/23 08:15 Aspirin (Aspirin 81 Mg Ectab) 81 mg PO QAM [facility] Stop: 02/06/23 08:59 Last Admin: 01/07/23 11:12 Dose: 81 mg Dextrose (Dextrose 50% 50 Ml Syringe) 25 - 50 ml IV UD PRN; Protocol PRN Reason: Hypoglycemia Protocol Stop: 02/06/23 08:44 Glucagon (Glucagon For Inj 1 Mg Vial) 1 mg IM UD PRN; Protocol PRN Reason: Hypoglycemia Protocol Stop: 02/06/23 08:44 Glucose (Glucose 40% Gel 15 Gm Tube) 15 - 30 gm PO UD PRN; Protocol PRN Reason: Hypoglycemia Protocol Stop: 02/06/23 08:44 Glucose (Glucose 10 Tab/Tube) 4 - 8 tab PO UD PRN; Protocol PRN Reason: Hypoglycemia Protocol Stop: 02/06/23 08:44 Insulin Aspart (Insulin Aspart Per Unit Charge) 0 units SC ACHS [facility] Stop: 02/06/23 08:44 Last Admin: 01/07/23 09:53 Dose: 5 units Miscellaneous (Carbohydrates For Hypoglycemia ) 15 - 30 gm PO UD PRN PRN Reason: Hypoglycemia Treatment Stop: 02/06/23 08:44 Nitroglycerin (Nitroglycerin Sl 0.4 Mg/Tab Tab) 0.4 mg SL Q5M PRN PRN Reason: Chest Pain Stop: 02/06/23 08:15 Ondansetron HCl (Ondansetron Inj 2 Mg/Ml 2 Ml Vial) 4 mg IV Q6H PRN PRN Reason: Nausea Stop: 02/06/23 08:15 Last Admin: 01/07/23 09:24 Dose: 4 mg Vitamin D (Cholecalciferol 1,000 Units 25 Mcg Tab) 1,000 units PO QAM [facility] Stop: 02/06/23 08:59 Last Admin: 01/07/23 11:12 Dose: 1,000 units PG Care Time/CCT Total # of Minutes Spent Total Time Spent with Patient: Total time spent is greater than 50% in coordination of care (as documented) at patient's floor/unit and/or counseling patient: Coding Level of Care Code 84429 IN/OBS CONSULT LVL 4,60M Diagnoses Atypical chest pain R07.89 Hypertension I10 Hypertension type: primary hypertension Hyperlipidemia E78.5 (2) Hypertension Hypertension type: primary hypertension Qualified Code(s): I10 - Essential (primary) hypertension
[2023-01-07] MEDS ORDERED: diazePAM 5 MG TABLET PO ONE (17:51)
[2023-01-07] MEDS ORDERED: KETOROLAC TROMETHAMINE 15 MG/ML VIAL IV ONE (17:51)
[2023-01-07] MEDS ORDERED: ACETAMINOPHEN 500 MG TAB PO ONE (17:52)
--- NOTE | 2023-01-07 17:59 | Hospitalist Progress Note ---
Date of Service January 07, 2023 Assessment & Plan (1) Atypical chest pain: Plan: Fortunately appears to be noncardiac, examines extremely consistent with musculoskeletal. Given that he was probably dehydrated being outside at [employer] all day, seems to have had baseline of dehydration since starting the Jardiance, and moved [id number] pound bags of cornchest wall strain seems to be the most consistent. OMT done, explained diagnosis in depth, also considered pulmonary pathology, but with no shortness of breath, no tachycardia, no hypoxia, no right heart strain on echovenous thromboembolic disease or other pulmonary pathology seems exceedingly unlikely. - OMT as above - magnesium IV to affect muscle relaxation - Valium as a muscle relaxant - Voltaren gel - Tylenol/Toradol --- since he still fairly uncomfortablewatch overnight into tomorrow to try to alleviate symptoms more, then home with outpatient follow-up (2) Type 2 diabetes mellitus: Plan: uncontrolled with most recent A1c being 8.7, prior to that 9.4current A1c pending discussed "why to care" ("high sugars clog arteries") discussed how type 2 diabetes is predominantly a lifestyle illnessit sounds like he eats an awful lot of simple carbohydrateswe discussed how postprandial glucose monitoring could help inform him of his food choices and the impact on his health and metabolism, discussed insulin resistance as a progressive process and less we change lifestyle, and discussed that if we do make major lifestyle changes, we can regress it oddly he has had intractable hunger since starting the JardianceI do wonder if these may be just constantly bathing and sugarwhich is then constantly shifting out of his body via urineand that rate of changes constantly making him hungry; also it sounds like because his sugars are fairly bad the diuretic effect of the Jardiance might be quite significantall told it sounds like this med might not be the best fit with him. We discussed stopping it, and either substituting something like a GLP, or if he really is willing and able to make massive lifestyle change, that alone can certainly put diabetes into remission with a lot of patients. For now would probably have him home off of the Jardiance, postprandial glucose monitoring and attempt lifestyle change, and unless he says tomorrow that he will not be making any lifestyle changes, would maybe hold off on adding another med to further encourage the mindset that this is something that is under his control rather than something that is purely metabolic. Admission and Anticipated Discharge Date Admission Date: January 07, 2023 Subjective Left upper chest and neck pain, hurts to breathe but no dyspnea. Was it can [employer] all day yesterday, then moved 20 100 pound bags of corn. Notes polyuria since starting Jardiance. Eats a lot of simple carbs Physical Exam Physical Exam: musculoskeletal/osteopathicleft anterior chest wall and left lateral neck high tone, tender, decreased range of motionbalanced ligamentous tension and indirect unwinding done with some improvement in tissue texturemuscle groups involved appear to be consistent with pectoralis minor, mid rib cage int ercostals, and left scalenes. Results & Data Results & Data Vital Signs (Past 12 Hours) Vital Signs Temp Pulse Pulse Resp BP BP Pulse Ox 01/07/23 11:57 98.8 F 62 16 140/86 96 01/07/23 10:55 01/07/23 10:54 97.7 F 64 18 131/77 94 01/07/23 08:27 61 01/07/23 06:30 57 L 20 118/70 96 01/07/23 06:00 59 L 01/07/23 06:00 57 L 20 113/69 96 Pulse Ox O2 Del Method O2 Del Method 01/07/23 11:57 Room Air 01/07/23 10:55 94 Room Air 01/07/23 10:54 Room Air 01/07/23 08:27 01/07/23 06:30 01/07/23 06:00 01/07/23 06:00 PG Care Time/CCT Total # of Minutes Spent Total Time Spent with Patient: Total time spent is greater than 50% in coordination of care (as documented) at patient's floor/unit and/or counseling patient: Coding Level of Care Code None Diagnoses Atypical chest pain R07.89 Type 2 diabetes mellitus E11.9 Comment same day
[2023-01-07] MEDS: MAGNESIUM SULFATE / D5W 1 GM/100 ML BAG IV SCH ×3 (18:14→22:12)
[2023-01-07] MEDS: DICLOFENAC SOD 1% GEL 100 GM TUBE EXT SCH (20:09)
[2023-01-08] MEDS ORDERED: LEVOTHYROXINE SODIUM 50 MCG TABLET PO SCH (06:30)
[2023-01-08 07:34] LABS: Estimated Average Glucose 174 mg/dl; Hemoglobin A1C 7.7 % (4.5-5.6)
[2023-01-08] MEDS: ASPIRIN 81 MG ECTAB PO SCH (08:18)
[2023-01-08] MEDS: CHOLECALCIFEROL 1,000 UNITS 25 MCG TAB PO SCH (08:18)
[2023-01-08] MEDS: DICLOFENAC SOD 1% GEL 100 GM TUBE EXT SCH (08:19)
[2023-01-08] MEDS: INSULIN ASPART PER UNIT CHARGE SC SCH ×3 (08:20→12:23)
[2023-01-08] MEDS ORDERED: LOSARTAN POTASSIUM 50 MG TAB PO SCH (09:00)
--- NOTE | 2023-01-08 13:04 | Discharge Summary ---
Date of Service January 08, 2023 Admission HPI Per Admitting Provider The patient is a 62-year-old male with a past medical history including vitamin D deficiency, hypertension, hyperlipidemia, diabetes mellitus type 2 and hypothyroidism. He presented to the emergency department with symptoms as noted above. His family history includes father of an OK in his early 40s, and a mother who had an OK in her early 40s and survived. He describes the pain as being very severe, enough so to wake his up and have her bring him to the emergency department for assessment. After receiving IV fentanyl, nitroglycerin sublingual and aspirin in the emergency department he reports the pain is significantly improved. He denies any change in usual activities. 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 Admission Exam Per Admitting Provider The patient is awake, alert and oriented 3, well developed and well nourished, normocephalic and atraumatic, lying in bed and in no acute distress. HEENT--PERRL, EOMI, mucous membranes and oropharynx normal. Neck--supple. No JVD. No bruits. Thyroid normal, trachea midline, no adenopathy. Heart--normal S1 and S2. No murmurs, rubs or gallops. Lungs--clear bilaterally, no respiratory distress, no accessory muscle use. Abdomen--normal bowel sounds and soft. Nontender. Nondistended, no hernias or masses, no organomegaly. Extremities--no cyanosis or clubbing. No edema. Dermatologic--normal skin turgor, normal color, no abnormal lymph nodes, no rash. Neurologic--cranial nerves II through XII grossly intact. Rheumatologic--normal range of motion. Psychiatric--normal affect. Principal Diagnosis musculoskeletal chest pain Discharge Exam general: Awake, conversant Heart: S1, S2/regular rate and rhythm, no murmur rubs or gallops Lungs: Clear to auscultation bilaterally. Normal effort Abdomen: Soft/nontender/nondistended. No hepatosplenomegaly Extremities: No clubbing/cyanosis. No edema Behavior: Appropriate, cooperative Discharge Data Allergies Allergy/AdvReac Type Severity Reaction Status Date / Time adhesive Allergy Unknown COLON/SWELL Verified 08/29/22 12:57 ING latex Allergy Unknown RASH Verified 08/29/22 12:57 metoprolol Allergy Unknown Rash Verified 08/29/22 12:57 atorvastatin Allergy Verified 08/29/22 12:57 lisinopril AdvReac Unknown COUGHING Verified 08/29/22 12:57 Consultations 01/07/23 03:59 ED Decision to Admit Stat 01/07/23 08:16 Consult Cardiology Routine Hospital Course (1) Atypical chest pain: Fortunately appears to be noncardiac, examines extremely consistent with musculoskeletal. Given that he was probably dehydrated being outside at [employer] all day, seems to have had baseline of dehydration since starting the Jardiance, and moved bags of cornchest wall strain seems to be the most consistent. OMT done, explained diagnosis in depth, also considered pulmonary pathology, but with no shortness of breath, no tachycardia, no hypoxia, no right heart strain on echovenous thromboembolic disease or other pulmonary pathology seems exceedingly unlikely. - OMT as above - Valium as a muscle relaxant - Voltaren gel - Tylenol/Toradol pain resolved. Patient wishes to go home today. This is most likely musculoskeletal in etiology. (2) Type 2 diabetes mellitus: uncontrolled with most recent A1c being 8.7, prior to that 9.4current A1c 7.7 Discussed lifestyle modification oddly he has had intractable hunger since starting the JardianceI do wonder if these may be just constantly bathing and sugarwhich is then constantly shifting out of his body via urineand that rate of changes constantly making him hungry; also it sounds like because his sugars are fairly bad the diuretic effect of the Jardiance might be quite significantall told it sounds like this med might not be the best fit with him. We discussed stopping it, and since he really is willing and able to make massive lifestyle change, that alone can certainly put diabetes into remission with a lot of patients. For now would probably have him home off of the Jardiance, postprandial glucose monitoring and attempt lifestyle change, hold off on adding another med to further encourage the mindset that this is something that is under his control rather than something that is purely metabolic. Continue metformin Total Time Total Time Spent Total Time Spent (In Minutes): 35 Discharge Plan Discharge Items Patient Disposition: Home - Self-Care Reason For Visit: CHEST PAIN Discharge Diagnosis: Musculoskeletal chest pain Activity: Resume your previous activity Non-emergency contact: Primary Care Provider Call non-emergency contact if: you have any medication questions and your symptoms worsen Follow-up/Referrals: Breanne Webb MD [Primary Care Provider] - 01/16/23 1:00 pm (APPOINTMENT WITH DR MONDRAGON) Diet: Carb Consistent or DM2 Addtl Attending Provider Instructions: advised to follow-up with PCP in 1 week Advised on lifestyle modifications and better low-carb meal choices advised to note that you are being discharged off of Jardiance advised that if you are not able to make changes to your lifestyle and meal choices, you will need to be started on a different medication for diabetes control Pending Studies at Discharge: No Stand-Alone Forms: My [facility] Medications and DC Order Prescriptions: Continued losartan 50 mg tablet 50 mg PO DAILY Qty: 90 3RF metformin 500 mg tablet 500 mg PO BID Qty: 180 3RF levothyroxine 50 mcg tablet 50 mcg PO DAILY Rx Instructions: 1/2 pill Sunday's, Sunday's, and Sunday's only magnesium oxide 400 mg magnesium tablet 400 mg PO DAILY cholecalciferol (vitamin D3) 25 mcg (1,000 unit) capsule 1,000 units PO QAM Discontinued Jardiance 10 mg tablet 10 mg PO DAILY Qty: 90 2RF Discharge Orders: Discharge Order (Routine); Ordered 01/08/23 Ordered By: Prashant Lam Admission Data Admit Date/Time: 01/07/23 04:32 Attending Provider: Prashant Lam Admit Provider: Pierre Johnston Primary Care Provider: Breanne Webb Other Providers: Pierre Johnston ; Jon Serrato Coding Level of Care Code 05353 INP/OBS DISCH >30 MIN Diagnoses Atypical chest pain R07.89 Type 2 diabetes mellitus E11.9
--- NOTE | 2023-01-08 22:26 | Electrocardiogram Report ---
Test Reason : Blood Pressure : / mmHG Vent. Rate : 064 BPM Atrial Rate : 064 BPM P-R Int : 172 ms QRS Dur : 096 ms QT Int : 380 ms P-R-T Axes : 042 004 051 degrees QTc Int : 392 ms Normal sinus rhythm When compared with ECG of 22-JUN-2020 10:41, No significant change Confirmed by Jon Serrato ([id number]) on 01/08/2023 10:25:34 PM Referred By: Breanne Webb Confirmed By:Jon Serrato
--- NOTE | 2023-01-08 22:26 | Electrocardiogram Report ---
Test Reason : Blood Pressure : / mmHG Vent. Rate : 054 BPM Atrial Rate : 054 BPM P-R Int : 188 ms QRS Dur : 094 ms QT Int : 408 ms P-R-T Axes : 052 000 029 degrees QTc Int : 386 ms Sinus bradycardia Otherwise normal ECG When compared with ECG of 07-JAN-2023 01:39, No significant change was found Confirmed by Jon Serrato ([id number]) on 01/08/2023 10:25:58 PM Referred By: Breanne Webb Confirmed By:Jon Serrato
== END 2023-01-08 14:03 | disposition home or self-care (01) ==
LOC: EDINP 01:28 → ED 01:28 → SUATTDRO 04:32 → 1E 08:17 → 3W 21:17